=== PATIENT | male | born 1965 | race Caucasian/White ===

== ENCOUNTER 2017-05-28 01:07 | Observation (INO) | payer MEDICARE, SELFPAY ==
[2017-05-28] MEDS ORDERED: Mag-Al 1200 mg/1200 mg/30 ML UDCUP ONE (01:53)
[2017-05-28] MEDS ORDERED: Lidocaine Viscous Sol 2% 15 ml UD Cup ONE (01:53)
[2017-05-28 02:30] LABS: Troponin I 0.015 ng/mL (< 0.028)
[2017-05-28] MEDS ORDERED: Ondansetron ODT 4 MG TAB SL PRN (03:55)
[2017-05-28] MEDS ORDERED: Acetaminophen 325 MG TAB PO PRN ×2 (03:55→08:17)
[2017-05-28] MEDS ORDERED: Ondansetron HCl/PF 4 MG/2 ML Vial IVP PRN (03:55)
[2017-05-28 04:07] VITALS: BMI 39.4
[2017-05-28] MEDS ORDERED: Nitroglycerin 2% Ointment 1 INCH/1 GM Packet TOP SCH ×2 (06:00→14:00)
[2017-05-28 06:49] LABS: Troponin I Less than 0.010 ng/mL (< 0.028)
[2017-05-28 08:02] LABS: Troponin I Less than 0.010 ng/mL (< 0.028)
[2017-05-28] MEDS ORDERED: HYDROcodone/Acetaminophen 5/325 mg Tablet PO PRN (08:17)
[2017-05-28] MEDS ORDERED: Ondansetron ODT 4 MG TAB PO PRN (08:17)
[2017-05-28] MEDS ORDERED: HYDROcodone/Acetaminophen 10/325 mg Tablet PO PRN (08:17)
[2017-05-28] MEDS ORDERED: Aspirin 325 MG TAB PO SCH ×2 (09:00)
[2017-05-28] MEDS ORDERED: Famotidine 20 MG TAB PO SCH (09:00)
[2017-05-28] MEDS ORDERED: Metoprolol Tartrate 25 MG TAB PO SCH (09:00)
[2017-05-28] MEDS ORDERED: Enoxaparin Sodium 40 MG/0.4 ML SYRINGE SC SCH (09:00)
--- NOTE | 2017-05-28 12:13 | NM ---
CARDIAC SPECT: HISTORY: A 52-year-old male with chest pain. Stroke. Smoker. Family history of coronary artery disease. TECHNIQUE: A stress only myocardial perfusion scan was performed following the intravenous administration of 33 millicuries of technetium 99m sestamibi. Pharmacologic stress with adenosine was monitored and inter preted by Dr. Gudino. FINDINGS: Homogeneous tracer distribution is seen in the myocardial segments on the post stress images. GATED SPECT LVEF: 54% WALL MOTION: Normal. IMPRESSION: Normal post stress myocardial perfusion scan. POS: JIGNESH
[2017-05-28 15:57] VITALS: BP 111/68; TEMP 97.9
--- NOTE | 2017-05-29 05:46 | CON ---
DATE OF CONSULTATION: 05/28/2017 REASON FOR CONSULTATION: Chest pain. HISTORY OF PRESENT ILLNESS: Mr. Maik Quinonez is a 52-year-old man who was transferred from an out lying emergency room for chest pain. The patient had chest pain yesterday, it was lower substernal g oing through to his back, it was intense. He had an EKG done which was normal. Cardiac enzymes were negative. The patient's pain was relieved with medicines in the emergency room. The patient underwent stress testing this morning, which was normal. He has never had pain like that before. He does have a history of burning in his chest and belching intermittently, but not more recently then and usually have. PAST MEDICAL HISTORY: 1. History of stroke 20 years ago, they did not find etiology. 2. History of hypercholesterolemia, was treated transiently for that and then taken off, as far as tamela segovia knows he does not have a high cholesterol. ALLERGIES: None known. SOCIAL HISTORY: He does smoke from 3 packs a day to 1 pack. No history of hypertension, otherwise a ctive and healthy. REVIEW OF SYSTEMS: Constitutional: No significant weight gain or loss. Vision: No changes. Heari ng: No changes. Pulmonary: No cough or wheezing. Gastrointestinal: No nausea, vomiting, or diarr hea. Skin: No rashes. Neurologic: No unilateral weakness or numbness. Psychiatric: No unusual d epression or anxiety. Hematologic: No unusual bruising. Genitourinary: No burning with urination. Musculoskeletal: No unusual joint pains. PHYSICAL EXAMINATION: GENERAL: A pleasant gentleman in no distress. VITAL SIGNS: Blood pressure 111/68, pulse 61, it is regular. HEENT: Eyes, sclerae nonicteric. Mouth, mucous membranes moist. NECK: Supple. No lymphadenopathy. LUNGS: Clear. No wheezing, rales, or rhonchi. CARDIAC: Normal S1, normal S2. There is no murmur, rub, or gallop. ABDOMEN: Obese, nontender. No hepatosplenomegaly. EXTREMITIES: Warm, dry. No clubbing or cyanosis. There is no edema. PERTINENT LABORATORY AND X-RAY FINDINGS: Hemoglobin is 15.2. Blood glucose is 127 last night. Trop onin levels less than 0.0101 on three occasions, 0.015 on the other occasion; these are all within no rmal range. EKG was normal. ASSESSMENT: 1. Chest pain. Negative cardiac enzymes, normal EKG, normal stress test. 2. History of smoking. 3. Obesity. PLAN: At this time, discussed with the patient, it is unlikely to be cardiac in view of negative car diac enzymes and negative EKG with normal stress test, but he does have some risk factors for coronar y artery disease with history of smoking and unknown cholesterol status. Plan would recommend he jennifer e medicine for stomach acid for at least a month. 1. Follow up with primary care doctor. 2. If he has recurrent pain, he should be reevaluated. 3. Consideration for outpatient ultrasound of the gallbladder. He will follow up with primary care doctor. 4. Recommended he have a lipid profile done as an outpatient, I told I would be glad to see him if tamela segovia has recurrent chest pain.
[2017-05-29] MEDS ORDERED: FLU VACC QS2017-18 36 mo. & older 0.5 ML SYRINGE IM ONE (09:00)
--- NOTE | 2017-05-29 22:06 | HP ---
PRIMARY CARE PHYSICIAN: None. CHIEF COMPLAINT: Chest pain. HISTORY OF PRESENT ILLNESS: Mr. Quinonez is a 52-year-old gentleman with a limited past medical hist ory who presents to the Emergency Department in [place] on 05/27 with 1 hour left-sided chest pa in, sharp in the subxiphoid area that seemed to radiate to his back. He did have some indigestion as sociated with that and some shortness of breath, in fact, that it seemed to get more sharp when he to ok a deep breath in. He had nausea, but no vomiting. It started while he was at rest watching TV se veral hours after eating lunch. He said now it is currently down to a dull ache. Labs and EKG in [facility] were negative and he was sent here for further workup. He has never had any kind of stres s testing. He was given nitroglycerin paste, aspirin and morphine there. On arrival here, he was evaluated in the Emergency Department. Repeat biomarkers were still negative . He was placed in observation. PAST MEDICAL HISTORY: 1. Cerebrovascular disease with TIA x2, followed by a full stroke in 1999. No residual effects. 2. Tobacco abuse, ongoing. PAST SURGICAL HISTORY: Includes a fifth finger amputation on 05/16/2017 in [place], by Dr. Olguin. Evin segovia had an appendectomy in 1993 and a right ankle repair. HOME MEDICATIONS: None. ALLERGIES: NKDA. FAMILY HISTORY: Significant for mom had some sort of heart failure. Dad of an HI, had his firs t one at age 52. Brother had heart disease with the first HI around 59. SOCIAL HISTORY: Significant for tobacco. He smoked about 1 pack a day for about 40 years, at one po int was up to 3 packs per day for 3-5 years in the middle. REVIEW OF SYSTEMS: Ten-point review of systems was performed, negative for all other systems except as stated per HPI. PHYSICAL EXAMINATION: VITAL SIGNS: Temperature 97.9, pulse 74, blood pressure 119/71, respiratory rate 16 and sat 96% on r oom air. GENERAL: He is awake, alert and oriented x3. He is an obese white male, appears to be in no distres s. HEENT: Normocephalic and atraumatic. Pupils are equal and reactive bilaterally, mucous membranes ar e moist. There is no visible lesion, no thrush. NECK: Supple, without lymphadenopathy, JVD or thyromegaly. He has normal carotid upstrokes. There are no bruits. LUNGS: Clear. He has no wheezes, no rales, no rhonchi. He has no prolonged expiratory phase. He h as good air movement. Symmetrical chest excursion. CARDIOVASCULAR: Normal S1 and S2, no S3 or S4. He is regular with normal rate. He has no audible m urmurs. ABDOMEN: Obese. It is nontender and nondistended. I cannot palpate internal organs. He has no kirit ound, rigidity or guarding. There are normoactive bowel sounds present in all 4 quadrants. EXTREMITIES: Show no cyanosis, no clubbing with trace bilateral lower extremity edema. It is trace to about just above the ankles. SKIN: Warm, moist and well-perfused. He has no rashes, no lesions. NEUROLOGIC: Cranial nerves II-XII are grossly intact without any focal neurologic deficits, 5/5 stre ngth, normal speech pattern. LABORATORY EVALUATION: CMP is normal. Sodium 140, potassium 4.5, creatinine 0.84 and glucose 127. His ALT was a little elevated at 78. White blood cell count was 11.6, hemoglobin 15.2, hematocrit of 44.9 and platelets 294,000. IMAGING DATA: Chest x-ray showed obscuration of the right costophrenic angle, but showed no acute di sease. ASSESSMENT AND PLAN: 1. Chest pain: Does have risk factors for heart disease. We will keep him n.p.o. We will get a nu clear stress test. Cardiology has been consulted by the Emergency Department. We will follow up wit h the recommendations. His biomarkers had been negative now x3. We will continue to monitor. The s tress test is negative and cleared by Cardiology. Anticipate discharge later today. 2. History of tobacco abuse, ongoing counseling. 3. Cerebrovascular disease with history of transient ischemic attack, not on aspirin. The patient maite hickey needs to go home on at least a baby aspirin daily. 4. Severe obesity: BMI is 39.5. I counseled him on the need to follow a good diet and lose weight.
--- NOTE | 2017-05-29 22:12 | DIS ---
DATE OF ADMISSION: 05/28/2017 at 0830 hours. DATE OF DISCHARGE: 05/28/2017 at 1237 hours. The patient was placed in observation just after midnight. DISCHARGE DIAGNOSES: 1. Noncardiac chest pain. 2. Severe obesity. 3. Ongoing tobacco abuse. 4. Cerebrovascular disease. CONSULTATION: Dr. Selvin Gudino on 05/28/2017, recommended aspirin on discharge. PROCEDURES: A nuclear stress test on 05/28/2017 that showed normal cardiac function, no inducible is chemia, normal EKG. HISTORY OF PRESENT ILLNESS: Mr. Quinonez is a 52-year-old gentleman who presented with epigastric pa in with radiation to the back. He had negative biomarkers. He was placed under our service on obser vation. HOSPITAL COURSE: The patient was seen and examined. Serial cardiac biomarkers remained negative, st ress testing was ordered and was negative. The patient was seen by Cardiology and cleared for discha rge with outpatient followup with the need to establish with a PCP, recommended aspirin only. DISCHARGE MEDICATIONS: 1. Aspirin 81 mg daily. 2. Protonix 40 mg daily. FOLLOWUP APPOINTMENTS 1. The patient needs to establish with a PCP. 2. Dr. Gudino in 2-3 weeks if he has not established with a PCP. DISCHARGE ACTIVITY: As tolerated. DISCHARGE DIET: The patient was encouraged to follow heart healthy diet. The patient was urged to return to the emergency department or call his PCP if he has any further sym ptoms.
--- NOTE | 2017-06-14 14:22 | EKG ---
Test Reason : CP Blood Pressure : / mmHG Vent. Rate : 074 BPM Atrial Rate : 074 BPM P-R Int : 182 ms QRS Dur : 090 ms QT Int : 364 ms P-R-T Axes : 046 029 019 degrees QTc Int : 404 ms Normal sinus rhythm No ST/T wave changes Normal ECG Confirmed by MAGUI STEVENS DO ([id number]), food editor CYNDI NAVARRETE ([id number]) on 06/14/2017 2:22:09 PM Referred By: Confirmed By:MAGUI STEVENS DO
== END 2017-05-28 18:19 | disposition home or self-care (01) ==
LOC: ERS 01:07 → 2SW 03:33
PROVIDERS: ADMIT Internal Medicine; ATTEND Internal Medicine
DX: R07.89 Other chest pain (principal); E66.01 Morbid (severe) obesity due to excess calories; F17.210 Nicotine dependence, cigarettes, uncomplicated; Z68.39 Body mass index [BMI] 39.0-39.9, adult; Z89.029 Acquired absence of unspecified finger(s); Z90.49 Acquired absence of other specified parts of digestive tract; Z98.890 Other specified postprocedural states; Z86.73 Personal history of transient ischemic attack (TIA), and cerebral infarction without residual deficits
CPT/HCPCS: 78452; 82550; 82553; 84484 ×2; 93005; 93017; 99285; A9500; G0378; 36415; J0153